=== PATIENT | female | born 1995 | race Caucasian/White ===

== ENCOUNTER 2020-11-04 01:08 | Inpatient (IN) | payer SELFPAY ==
[2020-11-04 01:08] VITALS: BP 120/70; PULSE 93; RESP 18; TEMP 36.9; O2SAT 98; BMI 23.3
[2020-11-04 06:00] VITALS: BP 97/65; PULSE 80; RESP 17; TEMP 36.6; O2SAT 97
--- NOTE | 2020-11-04 11:03 | P.HP_ITS ---
Providers/Chief Complaint Admitting Physician: Tulio Watkins MD Chief Complaint: SI - BED 150/2 HPI NPU History of Present Illness Judie Robert is a 24 year old female who presented to an outside hospital after she got in a conflict with her with whom she is from for maybe a week, after she was made aware that he has a new significant other. She responded to that by sending him messages, basically either specifically or alluding to the fact that she might not be around, and she was put on a 96-hour hold secondary to that. She was transferred to [facility] and admitted to the neuropsychiatric unit for definitive treatment of those issues. She presents today reporting that she has had two psychiatric visits in her life, this being the second. The first one was about two years ago at [facility] in [place]. She reports she has had outpatient services but does not have a therapist. She did have that kind of treatment in the past as a kid. She reports she smokes about two cigarettes a day, drinks alcohol socially, denies marijuana use and denies any other illicit drug use. She has never been to a rehab and never had a DUI. She reports that in the very recent past she identified that her was cheating, and she really broke down, but felt like they were going to work through it, and so she was prepared to do that. In the last week it turned out that he was texting someone and it turned out that he had a new girlfriend and was ready and prepared to move on with her. She is really struggling because it is an essentially younger, prettier girl in their town with no children. She really believed that this was her lifetime relationship, and they were building something together, they have three children, and she has just been devastated, and he did not seem to care as much as she was caring that their relationship was deteriorating, and she identifies that she said something that should not have been said, but she was wanting him to care, and she knows that is not realistic. She has sat at the outside hospital and here thinking about the issues. She understands that she has to accept the reality and move forward but was reasonable about understanding the pain because she identifies that she does still love him. She struggles with anxiety and has had some benzodiazepines in the past, but she does not like taking them because they can be habit forming. We discussed the risks, benefits, and alternatives of initiating Buspar, and she understood and agreed to proceed as is documented in this note. PSYCHIATRIC HISTORY: As above. SUBSTANCE ABUSE HISTORY: As above. FAMILY HISTORY: There are mental health issues on both sides of the family and alcohol and other addiction issues on both sides of the family. She has a maternal grandfather that completed suicide. DEVELOPMENTAL HISTORY: She reports that she was taken early during her mom?s for some failure to thrive in the wound, and she was only like five pounds. She learned to walk and talk and met her developmental milestones on time, when she went off to school, she did not need speech therapy, learning support, emotional support, or special education classes. PSYCHOSOCIAL HISTORY: She reports that her parents were together when she was born, and that she has a younger brother and an older sister that are products of that same union. Her mother does not have any other children, but her father has a daughter from a previous relationship. She reports her childhood was rough because of the alcohol and drugs that were involved. Her dad, actually when she was younger, was a drug dealer and so there were lots of contradictions in her life. Because of her parents? behavior, she was fairly neglected and endorsed emotional abuse/neglect but denied physical or sexual abuse. The highest grade she reached was the tenth grade, but she did get her GED and has had some college and in college now. She endorses being bisexual and her longest relationship was five years. She has been two times and once, currently . She has a 10-year-old and 3-year-old daughters and a 7-year-old son. The 10-year-old she reports has autism. She has never been in the and has no orthodox belief system. 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 She currently lives in a house with her children. LEGAL HISTORY: Denied. MEDICAL HISTORY: Denied. Meds NPU Home Medications Medication Instructions Recorded Confirmed Last Taken Type amoxicillin-pot clavulanate 1 tab PO BID 11/04/20 11/04/20 Unknown History buspirone 15 mg PO BID 30 Days #90 tab 11/05/20 Unknown Rx trazodone 50 mg PO BEDTIME PRN 30 Days #30 11/05/20 Unknown Rx tab Allergies Allergy/AdvReac Type Severity Reaction Status Date / Time No Known Allergies Allergy Verified 11/04/20 01:55 Mental Status Exam MSE Comments: This is an overweight, white female, in hospital scrubs with adequate grooming, and eye contact. No abnormal movements except for mild psychomotor retardation. Cooperative with exam in mild distress. Speech was decreased rate and volume. Mood described as sad but resolute; affect congruent. Thought process, organized. Thought content: patient denied any suicidal or homicidal ideation, there were no delusions reported or noted, patient denied any auditory or visual hallucinations. Attention, concentration, and memory appear intact but were not formally tested. He is alert and oriented times three. Insight and judgment are good and impulse control is fair. Vitals/I&O/Wt Last Vital Signs Temp 97.9 F 11/04/20 06:00 Pulse 80 11/04/20 06:00 Resp 17 11/04/20 06:00 BP 97/65 11/04/20 06:00 Pulse Ox 97 11/04/20 06:00 Weight last 48 hrs Weight 65.771 kg Weight 65.771 kg Weight 65.771 kg A&P Assessment and plan (1) Marital/partner relational problem: Status: Acute (2) Anxiety disorder: Status: Acute (3) Acute adjustment disorder with mixed disturbance of emotions and conduct: Status: Acute Additional A&P Information This is a 24, almost 25-year-old, white female, with adjustment disorder, with mixed disturbance of emotion and conduct, attention deficit hyperactivity disorder, by history, anxiety disorder, unspecified, and partner relational problem, who presents after making some suicidal statements, but currently contracts for safety. RECOMMENDATION AND PLAN: 1. Continue current medication. 2. Encourage individual, group, and milieu therapy. 3. Continue q-15 minute checks for safety. 4. Will monitor overnight to ensure presentation continues to seem authentic, and if so, we will discharge in the morning. Involuntary Hold Information 96 Hour Hold: 96 Hour Involuntary Admission: Yes 96 Hour Hold Ending Date: 11/09/20 96 Hour Hold Ending Time: 19:33 Attestations NPU Medical Necessity Statement*: Inpatient hospitalization is medically necessary and the clinically appropriate intervention, at this time. We will monitor medications and make changes as indicated. Patient will be in the hospital for over two midnights. Likely length of stay is one to three days. Coding Level of Care Code Acute Hspt Tutor for Rosa Fwd Diagnoses Marital/partner relational problem Z63.0 Anxiety disorder F41.9 Acute adjustment disorder with mixed disturbance of emotions and conduct F43.25
[2020-11-04 14:00] VITALS: BP 97/65; PULSE 80; RESP 17; TEMP 36.6; O2SAT 97
[2020-11-04 15:28] VITALS: BP 109/68; PULSE 102; RESP 20; TEMP 36.8; O2SAT 96
[2020-11-04] MEDS: BuSPIRONE 10 mg Tablet 15 MG PO (16:35)
[2020-11-04] MEDS: acetaminophen 325 mg Tablet 650 MG PO (16:51)
[2020-11-04 22:00] VITALS: BP 95/64; PULSE 86; RESP 16; TEMP 36.7; O2SAT 95
[2020-11-04] MEDS: hyDROXYzine 25 mg Capsule 50 MG PO (22:18)
[2020-11-04] MEDS: trazodone 50 mg Tablet PO (22:18)
--- NOTE | 2020-11-05 03:38 | PC.NURSE ---
Skin assessment (11/04/20) revealed no wounds or injuries.
[2020-11-05 05:51] VITALS: BP 91/62; PULSE 71; RESP 16; TEMP 36.6; O2SAT 98
--- NOTE | 2020-11-05 09:08 | P.DS_ITS ---
Diagnoses at Discharge Discharge Diagnosis (1) Acute adjustment disorder with mixed disturbance of emotions and conduct: Status: Acute (2) Anxiety disorder: Status: Acute (3) Marital/partner relational problem: Status: Acute Reason for Visit Reason for Visit: SI - BED 150/2 Brief History: History of Present Illness Judie Robert is a 24 year old female who presented to an outside hospital after she got in a conflict with her with whom she is from for maybe a week, after she was made aware that he has a new significant other. She responded to that by sending him messages, basically either specifically or alluding to the fact that she might not be around, and she was put on a 96-hour hold secondary to that. She was transferred to [facility] and admitted to the neuropsychiatric unit for definitive treatment of those issues. She presents today reporting that she has had two psychiatric visits in her life, this being the second. The first one was about two years ago at [facility] in [place]. She reports she has had outpatient services but does not have a therapist. She did have that kind of treatment in the past as a kid. She reports she smokes about two cigarettes a day, drinks alcohol socially, denies marijuana use and denies any other illicit drug use. She has never been to a rehab and never had a DUI. She reports that in the very recent past she identified that her was cheating, and she really broke down, but felt like they were going to work through it, and so she was prepared to do that. In the last week it turned out that he was texting someone and it turned out that he had a new girlfriend and was ready and prepared to move on with her. She is really struggling because it is an essentially younger, prettier girl in their town with no children. She really believed that this was her lifetime relationship, and they were building something together, they have three children, and she has just been devastated, and he did not seem to care as much as she was caring that their relationship was deteriorating, and she identifies that she said something that should not have been said, but she was wanting him to care, and she knows that is not realistic. She has sat at the outside hospital and here thinking about the issues. She understands that she has to accept the reality and move forward but was reasonable about understanding the pain because she identifies that she does still love him. She struggles with anxiety and has had some benzodiazepines in the past, but she does not like taking them because they can be habit forming. We discussed the risks, benefits, and alternatives of initiating Buspar, and she understood and agreed to proceed as is documented in this note. PSYCHIATRIC HISTORY: As above. SUBSTANCE ABUSE HISTORY: As above. FAMILY HISTORY: There are mental health issues on both sides of the family and alcohol and other addiction issues on both sides of the family. She has a maternal grandfather that completed suicide. DEVELOPMENTAL HISTORY: She reports that she was taken early during her mom?s for some failure to thrive in the wound, and she was only like five pounds. She learned to walk and talk and met her developmental milestones on time, when she went off to school, she did not need speech therapy, learning support, emotional support, or special education classes. PSYCHOSOCIAL HISTORY: She reports that her parents were together when she was born, and that she has a younger brother and an older sister that are products of that same union. Her mother does not have any other children, but her father has a daughter from a previous relationship. She reports her childhood was rough because of the alcohol and drugs that were involved. Her dad, actually when she was younger, was a drug dealer and so there were lots of contradictions in her life. Because of her parents? behavior, she was fairly neglected and endorsed emotional abuse/neglect but denied physical or sexual abuse. The highest grade she reached was the tenth grade, but she did get her GED and has had some college and in college now. She endorses being bisexual and her longest relationship was five years. She has been two times and once, currently . She has a 10-year-old and 3-year-old daughters and a 7-year-old son. The 10-year-old she reports has autism. She has never been in the and has no orthodoxy belief system. 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 She currently lives in a house with her children. LEGAL HISTORY: Denied. MEDICAL HISTORY: Denied. Hospital Course Hospital Course She quickly acclimated to the individual, group and milieu therapies provided. Restarted BuSpar for anxiety and trazodone for sleep and she showed marked improvement. She identified a plan for moving forward given her situation. She was able to contract for safety prior to discharge. At the outside hospital, patient had routine laboratory studies which were within normal limits except for few outliers. Additionally there was a general medical evaluation which was also within normal limits and revealed no new acute processes. Discharge Summary: At the time of discharge, she denied psychosis or lethality. Mood and anxiety were well managed. Patient endorsed a plan to follow-up with the aftercare recommendations of the treatment team. Patient was evaluated and deemed to be absent credible lethality, and had achieved the maximum benefit from an inpatient hospitalization, so was discharged. Involuntary Hold Information 96 Hour Hold: 96 Hour Involuntary Admission: Yes 96 Hour Hold Ending Date: 11/09/20 96 Hour Hold Ending Time: 19:33 Mental Status Exam MSE Comments: This is an overweight, white female, in hospital scrubs with adequate grooming, and eye contact. No abnormal movements. Cooperative with exam in mild distress. Speech was more normal rate and volume. Mood described as better; affect congruent. Thought process, organized. Thought content: patient denied any suicidal or homicidal ideation, there were no delusions reported or noted, patient denied any auditory or visual hallucinations. Attention, concentration, and memory appear intact but were not formally tested. She is alert and oriented times three. Insight and judgment are good and impulse control is fair. Discharge Data Vitals: Last Vital Signs Temp 97.8 F 11/05/20 05:51 Pulse 71 11/05/20 05:51 Resp 16 11/05/20 05:51 BP 91/62 11/05/20 05:51 Pulse Ox 98 11/05/20 05:51 Discharge Plan Discharge Patient Disposition: Home Condition: Stable Prescriptions: New trazodone 50 mg Tablet 50 mg PO BEDTIME PRN (Reason: Sleep) 30 Days Qty: 30 RF: 1 buspirone 10 mg Tablet 15 mg PO BID 30 Days Qty: 90 RF: 1 Continued amoxicillin-pot clavulanate 875-125 mg tablet 1 tab PO BID RF: 0 Discharge Orders: Discharge Order (Routine); Ordered 11/05/20 Ordered By: Tulio Watkins Discharge Diet: Regular Discharge Activity: Resume usual activity Patient Instructions: Opioid Safety Discharge Attestations NPU Time Spent in Discharge Care*: less than 30 min Specific Discharge Activities: Specific discharge activities: educating patient, discussing with case sealer/social workers/dc planners, documenting/other paperwork and evaluating patient/reviewing data Coding Level of Care Code Acute Chg FW DC note Diagnoses Acute adjustment disorder with mixed disturbance of emotions and conduct F43.25 Anxiety disorder F41.9 Marital/partner relational problem Z63.0
[2020-11-05] MEDS: BuSPIRONE 10 mg Tablet PO (09:20)
== END 2020-11-05 13:05 | disposition home or self-care (01) | DRG 882 ==
PROVIDERS: Admitting Provider Psychiatry & Neurology Psychiatry; Visit Provider Psychiatry & Neurology Psychiatry
DX: F43.25 Adjustment disorder with mixed disturbance of emotions and conduct (principal); F41.1 Generalized anxiety disorder; F17.210 Nicotine dependence, cigarettes, uncomplicated; Z63.0 Problems in relationship with spouse or partner; Z81.8 Family history of other mental and behavioral disorders